=== PATIENT | male | born 1940 | race Caucasian/White ===

== ENCOUNTER 2020-10-20 17:37 | Emergency (ER) | payer MEDICARE, OTHER ==
[~2020-10-20] VITALS: Ht 175.3 cm; Wt 100.0 kg
[2020-10-20 18:09] VITALS: BP 141/64
--- NOTE | 2020-10-20 18:10 | PHYS DOC ---
General Adult EDM: Chief Complaint: CHEST PAIN HPI: HPI: 80-year-old male presents with chest pain. The patient states the pain started about 2 hours ago. It was a central chest pressure that was a 6 out of 10. After arriving in the emergency room, he says it is "pretty well gone". He still has a mild tension in the middle of his back. The patient also felt like he had some bradycardia episodes down into the 40s. He is tracking his heart rate with his apple watch. He denies diaphoresis, shortness of breath, dizziness. Patient was recently diagnosed with paroxysmal atrial fibrillation. He is on diltiazem daily which he takes in the morning. He is taking all his medications as prescribed. 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 Patient denies fever or chills. Review of Systems: Review of Systems: Constitutional: Denies fever or chills Eyes: Denies change in visual acuity HENT: Denies nasal congestion or sore throat Respiratory: Denies cough or shortness of breath Cardiovascular: Chest pain GI: Denies abdominal pain, nausea, vomiting, bloody stools or diarrhea : Denies dysuria Musculoskeletal: Denies back pain or joint pain Integument: Denies rash Neurologic: Denies headache, focal weakness or sensory changes Endocrine: Denies polyuria or polydipsia Lymphatic: Denies swollen glands Psychiatric: Denies depression or anxiety Physical Exam: PE: Constitutional: Well developed, well nourished, no acute distress, non-toxic appearance. [] HENT: Normocephalic, atraumatic, bilateral external ears normal, oropharynx moist, no oral exudates, nose normal. [] Eyes: PERRLA, EOMI, conjunctiva normal, no discharge. [] Neck: Normal range of motion, no tenderness, supple, no stridor. [] Cardiovascular: Heart rate 71, regular rhythm, no murmur [] Lungs & Thorax: Bilateral breath sounds clear to auscultation [] Abdomen: Bowel sounds normal, soft, no tenderness, no masses, no pulsatile masses. [] Skin: Warm, dry, no erythema, no rash. [] Back: No tenderness, no CVA tenderness. [] Extremities: No tenderness, no cyanosis, no clubbing, ROM intact, no edema. [] Neurologic: Alert and oriented X 3, normal motor function, normal sensory function, no focal deficits noted. [] Psychologic: Affect normal, judgement normal, mood normal. [] EKG: EKG: Sinus rhythm, rate 71, normal axis, no ST elevations or depressions, PVC. [] Radiology/Procedures: Radiology/Procedures: [] Heart Score: C/O Chest Pain: Yes HEART Score for Chest Pain: HEART Score for Chest Pain Response (Comments) Value History Slighlty/Non-Suspicious 0 ECG Nonspecific Repolarizatio 1 Age > 65 2 Risk Factors 1 or 2 Risk Factors 1 Troponin < Normal Limit 0 Total 4 Risk Factors: Risk Factors: DM, Current or recent (<one month) smoker, HTN, HLP, family history of CAD, obesity. Risk Scores: Score 0 - 3: 2.5% MACE over next 6 weeks - Discharge Home Score 4 - 6: 20.3% MACE over next 6 weeks - Admit for Clinical Observation Score 7 - 10: 72.7% MACE over next 6 weeks - Early Invasive Strategies Course & Med Decision Making: Course & Med Decision Making Pertinent Labs and Imaging studies reviewed. (See chart for details) The patient's EKG is unremarkable. His labs are unremarkable. His troponin is negative. His chest x-ray is negative for acute findings. The patient's pain is completely gone. Patient has a heart score of 4. He was seen by cardiology within the last 2 months. He has another appointment in less than a month. He would like to go home. I believe this is reasonable. 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 If he has further issues or if his pain returns, he will come back to the emergency room. The patient and his are in agreement. He is stable for discharge at this time [] Dragon Disclaimer: Dragon Disclaimer: This electronic medical record was generated, in whole or in part, using a voice recognition dictation system. Departure Departure: Impression: Primary Impression: Chest pain Qualified Codes: R07.2 - Precordial pain Disposition: HOME / SELF CARE / HOMELESS Condition: STABLE Referrals: ROSA ISELA NAVARRETE MD (PCP) Patient Instructions: Chest Pain (Nonspecific), [id number] FLORY MYERS DO October 20, 2020 18:10
[2020-10-20 18:48] LABS: BASO # 0.1 x10^3/uL (0.0-0.2); BASO % 1 % (0-3); EOS # 0.2 x10^3/uL (0.0-0.7); EOS % 3 % (0-3); HEMATOCRIT 46.1 % (39.0-53.0); LYMPH # 3.1 x10^3/uL (1.0-4.8); LYMPH % 35 % (24-48); MEAN CORPUSCULAR HEMOGLOBIN 33 pg (25-35); MEAN CORPUSCULAR HGB CONC 35 g/dL (31-37); MEAN CORPUSCULAR VOLUME 94 fL (79-100); MONO # 0.9 x10^3/uL (0.0-1.1); MONO % 10 % (0-9); NEUT # 4.7 x10^3uL (1.8-7.7); NEUT % 52 % (31-73); PLATELET COUNT 215 x10^3/uL (140-400); RED BLOOD COUNT 4.89 x10^6/uL (4.30-5.70); RED CELL DISTRIBUTION WIDTH 13.2 % (11.5-14.5)
[2020-10-20 18:52] LABS: CREATININE 1.4 mg/dL (0.7-1.3); GFR 48.6; POTASSIUM 3.8 mmol/L (3.5-5.1)
[2020-10-20 18:56] LABS: ALBUMIN/GLOBULIN RATIO 1.3 (1.0-1.7); TOTAL BILIRUBIN 0.9 mg/dL (0.2-1.0)
--- NOTE | 2020-10-20 19:57 | RAD ---
EXAMINATION: XR CHEST 1V CLINICAL HISTORY: Chest pain EXAM DATE/TIME: 10/20/2020 6:54 PM COMPARISON: 07/20/2006 FINDINGS: Lines, Tubes, and Devices: None. Cardiomediastinal Silhouette: Within normal limits. Lungs and Pleura: Pulmonary hypoexpansion without evidence of focal airspace consolidation or pleural effusion. Mild diffuse reticulonodular opacities, similar to prior study and likely chronic. Bones and Soft Tissues: Degenerative changes of the thoracic spine. IMPRESSION: No evidence of acute cardiopulmonary abnormality or significant interval change. Electronically signed by: Gregorio Smyth DO (10/20/2020 7:55 PM) [facility]
--- NOTE | 2020-10-21 06:56 | EKG ---
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
== END 2020-10-20 20:08 | disposition home or self-care (01) ==
LOC: ER 17:37
DX: R07.89 Other chest pain (principal)
CPT/HCPCS: 36415; 71045; 80053; 84484; 85025; 93005; 99285-25

== ENCOUNTER 2020-10-31 15:36 | Emergency (ER) | payer MEDICARE, OTHER ==
[~2020-10-31] VITALS: Ht 175.3 cm; Wt 87.0 kg
--- NOTE | 2020-10-31 16:15 | PHYS DOC ---
Past History Past Medical History: A-Fib, Diabetes, Heart Disease, Hypertension, Other Additional Past Medical Histor: kidney disease (MECHE WILKS MD) Past Medical History: CAD, Hypertension (SHANNON LANTIGUA MD) Past Surgical History: No Surgical History (MECHE WILKS MD) Alcohol Use: None (MECHE WILKS MD) General Adult EDM: Chief Complaint: Palpitations HPI: HPI: Patient is a 80-year-old male coming in for irregular heartbeat. Was seen here for similar episode about 3 weeks ago. 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 Patient states that his heart rate will drop down to the 40s and then over the course of minute go back up to around 100. States his normal heart rate is around 70-80. Patient is at the time he feels a little bit of chest pressure and lightheadedness. Denies any symptoms now. Denies any cough, shortness of breath, vomiting or diarrhea. Patient has a intentional 20 pound weight loss recently. (MECHE WILKS MD) Review of Systems: Review of Systems: All other systems within normal limits except for as noted in the HPI (MECHE WILKS MD) Allergies: Allergies: Allergies Coded Allergies Type Severity Reaction Last Updated Verified atorvastatin Allergy Unknown 10/31/20 Yes rosuvastatin Allergy Unknown 10/31/20 Yes sulfamethoxazole Allergy Unknown 10/31/20 Yes trimethoprim Allergy Unknown 10/31/20 Yes (MECHE WILKS MD) Physical Exam: PE: Constitutional: Well developed, well nourished, no acute distress, non-toxic appearance. [] HENT: Normocephalic, atraumatic, bilateral external ears normal, nose normal. [] Eyes: PERRLA, conjunctiva normal, no discharge. [] Neck: No rigidity, supple, no stridor. [] Cardiovascular: Regular rate and rhythm, brisk cap refill symmetric radial pulses, no gallops [] Lungs & Thorax: Non labored symmetric respirations, no tachypnea or respiratory distress [] Abdomen: Soft, nondistended. Skin: Warm, dry, no erythema, no rash. [] Back: Unremarkable Extremities: No deformities, range of motion grossly intact, no lower extremity edema [] Neurologic: Alert and oriented X 3, no focal deficits noted. [] Psychologic: Affect normal, judgement normal, mood normal. [] (MECHE WILKS MD) Current Patient Data: Vital Signs: Vital Signs Date Time Temp Pulse Resp B/P (MAP) Pulse Ox O2 Delivery O2 Flow Rate FiO2 10/31/20 15:50 97.3 61 22 149/67 (94) 96 (MECHE WILKS MD) EKG: EKG: Sinus rhythm, heart 50 bpm, normal axis, no ST elevation or depression, no ectopy. [] (MECHE WILKS MD) Radiology/Procedures: Radiology/Procedures: AP portable chest radiograph 10/31/2020 Clinical History: Palpitations. An AP erect portable digital radiograph of the chest was obtained. Comparison study is dated 10/20/2020. The cardiac silhouette is mildly enlarged. The thoracic aorta is mildly tortuous. Elevation of the right hemidiaphragm is again seen. No acute pulmonary infiltrate is noted. No pneumothorax or pleural effusion is seen. The osseous structures are unchanged. Impression: No acute abnormality is seen. [] (MECHE WILKS MD) Radiology/Procedures: [place] [address] IMAGING REPORT Signed PATIENT: ARMAND CLAY ACCOUNT: [id number] : 1940 LOCATION: ER AGE: 80 SEX: M EXAM STATUS: REG ER ORD. PHYSICIAN: MECHE WILKS MD REASON: palpitations PROCEDURE: CHEST AP ONLY AP portable chest radiograph 10/31/2020 Clinical History: Palpitations. An AP erect portable digital radiograph of the chest was obtained. Comparison study is dated 10/20/2020. The cardiac silhouette is mildly enlarged. The thoracic aorta is mildly tortuous. Elevation of the right hemidiaphragm is again seen. No acute pulmonary infiltrate is noted. No pneumothorax or pleural effusion is seen. The osseous structures are unchanged. Impression: No acute abnormality is seen. Electronically signed by: Marcus Lopez MD (10/31/2020 4:28 PM) [id number] DICTATED AND SIGNED BY: MARCUS LOPEZ MD DATE: 10/31/20 1624 CC: MECHE WILKS MD; ROSA ISELA NAVARRETE MD ~MTH0 0 (SHANNON LANTIGUA MD) Heart Score: C/O Chest Pain: Yes HEART Score for Chest Pain: HEART Score for Chest Pain Response (Comments) Value History Moderately Suspicious 1 ECG Normal 0 Age > 65 2 Risk Factors 1 or 2 Risk Factors 1 Total 4 Risk Factors: Risk Factors: DM, Current or recent (<one month) smoker, HTN, HLP, family h istory of CAD, obesity. Risk Scores: Score 0 - 3: 2.5% MACE over next 6 weeks - Discharge Home Score 4 - 6: 20.3% MACE over next 6 weeks - Admit for Clinical Observation Score 7 - 10: 72.7% MACE over next 6 weeks - Early Invasive Strategies (MECHE WILKS MD) HEART Score for Chest Pain: HEART Score for Chest Pain Response (Comments) Value History Slighlty/Non-Suspicious 0 ECG Nonspecific Repolarizatio 1 Age > 65 2 Risk Factors 1 or 2 Risk Factors 1 Troponin < Normal Limit 0 Total 4 Course & Med Decision Making: Course & Med Decision Making Pertinent Labs and Imaging studies reviewed. (See chart for details) Discussed disposition options with patient and . Discussed option of consulting [facility] for his cardiology team. Patient states he plans to see his primary care provider first thing in the morning. Discussed possibility of having a monitor placed. Discussed I would like to repeat 1 more troponin at least 3 hours out from symptom onset to ensure there is no ischemia causing his bradycardia. Discussed return precautions and plan. Patient and agreeable and voiced understanding of the return precautions. [] (MECHE WLIKS MD) Course & Med Decision Making See Dr. Wilks chart for details prior shift change. Pt. without complaints at 1800Hr.s. Patient remains symptom-free. Patient had serial EKGs with no acute interval changes. Patient had 2 - troponins at 0.017. Patient elects to be discharged home with follow-up with cardiology and primary care. Last EKG at 1949 hrs. shows sinus bradycardia rhythm at 50 bpm, some left axis. Some contour changes. But no interval change from prior EKG at 1551 minutes. Impression: 1. History of palpitations 2. Chest discomfort 3. History of coronary artery disease 4. Sinus bradycardia (SHANNON LANTIGUA MD) Dragon Disclaimer: Dragon Disclaimer: This electronic medical record was generated, in whole or in part, using a voice recognition dictation system. (MECHE WILKS MD) Departure Departure: Impression: Primary Impression: Bradycardia Referrals: ROSA ISELA NAVARRETE MD (PCP) MECHE WILKS MD October 31, 2020 16:15 SHANNON LANTIGUA MD October 31, 2020 18:43
--- NOTE | 2020-10-31 16:31 | RAD ---
AP portable chest radiograph 10/31/2020 Clinical History: Palpitations. An AP erect portable digital radiograph of the chest was obtained. Comparison study is dated 10/20/2020. The cardiac silhouette is mildly enlarged. The thoracic aorta is mildly tortuous. Elevation of the ri ght hemidiaphragm is again seen. No acute pulmonary infiltrate is noted. No pneumothorax or pleural e ffusion is seen. The osseous structures are unchanged. Impression: No acute abnormality is seen. Electronically signed by: Marcus Lopez MD (10/31/2020 4:28 PM) [id number]
[2020-10-31 16:49] LABS: BASO # 0.1 x10^3/uL (0.0-0.2); BASO % 1 % (0-3); EOS # 0.3 x10^3/uL (0.0-0.7); EOS % 3 % (0-3); HEMATOCRIT 46.9 % (39.0-53.0); HEMOGLOBIN 16.1 g/dL (13.0-17.5); LYMPH # 2.9 x10^3/uL (1.0-4.8); LYMPH % 29 % (24-48); MEAN CORPUSCULAR HEMOGLOBIN 33 pg (25-35); MEAN CORPUSCULAR HGB CONC 34 g/dL (31-37); MEAN CORPUSCULAR VOLUME 95 fL (79-100); MONO # 0.8 x10^3/uL (0.0-1.1); MONO % 8 % (0-9); NEUT # 5.8 x10^3uL (1.8-7.7); NEUT % 59 % (31-73); PLATELET COUNT 228 x10^3/uL (140-400); RED BLOOD COUNT 4.95 x10^6/uL (4.30-5.70); RED CELL DISTRIBUTION WIDTH 13.3 % (11.5-14.5); WHITE BLOOD COUNT 9.9 x10^3/uL (4.0-11.0)
[2020-10-31 17:01] LABS: CALCIUM 9.9 mg/dL (8.5-10.1); CREATININE 1.2 mg/dL (0.7-1.3); GFR 58.1; POTASSIUM 3.6 mmol/L (3.5-5.1)
[2020-10-31 17:13] LABS: ALBUMIN 3.7 g/dL (3.4-5.0); ALBUMIN/GLOBULIN RATIO 1.1 (1.0-1.7); MAGNESIUM 2.2 mg/dL (1.8-2.4); PHOSPHORUS 3.4 mg/dL (2.6-4.7); TOTAL BILIRUBIN 0.9 mg/dL (0.2-1.0); TOTAL PROTEIN 7.1 g/dL (6.4-8.2)
--- NOTE | 2020-10-31 18:57 | EKG ---
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
[2020-10-31 19:09] LABS: BILIRUBIN,URINE NEG (NEG); CLARITY,URINE CLEAR; COLOR,URINE YELLOW; GLUCOSE,URINE NEG (NEG); NITRITE,URINE NEG (NEG)
[2020-10-31 19:10] LABS: BACTERIA,URINE 0 /HPF (0-FEW); SQUAMOUS EPITHELIAL CELL,UR OCC /LPF; WBC,URINE 0 /HPF (0-4)
[2020-10-31 19:55] VITALS: BP 124/76
--- NOTE | 2020-10-31 21:55 | EKG ---
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
== END 2020-10-31 20:00 | disposition home or self-care (01) ==
LOC: ER 15:36
DX: R00.1 Bradycardia, unspecified (principal); R07.89 Other chest pain; R42 Dizziness and giddiness; I48.91 Unspecified atrial fibrillation; E11.9 Type 2 diabetes mellitus without complications; I11.9 Hypertensive heart disease without heart failure; Z88.1 Allergy status to other antibiotic agents; Z88.2 Allergy status to sulfonamides; Z88.8 Allergy status to other drugs, medicaments and biological substances
CPT/HCPCS: 36415; 71045; 80053; 81001; 83735; 83880; 84100; 84484; 85025; 93005; 99285

== ENCOUNTER 2021-08-02 23:09 | Emergency (ER) | payer MEDICARE, OTHER ==
[~2021-08-02] VITALS: Ht 175.3 cm; Wt 87.0 kg
--- NOTE | 2021-08-02 23:14 | PHYS DOC ---
Past History Past Medical History: CAD, Hypertension Additional Past Medical Histor: kidney disease Past Surgical History: No Surgical History Alcohol Use: None Adult General HPI HPI Patient is an 81-year-old male who presents with a chief complaint of high blood pressure. States that he has had a machine at home for about 5 years and took it earlier and was like 170/100. Denies any headache, changes in vision, slurred speech, confusion, facial droop, numbness/weakness/tingling, trouble s itting, standing or walking. Denies any chest pain, shortness of breath, abdominal pain, nausea, vomiting. States he is making urine and stool normally for him with no blood in either. Denies any dyspnea on exertion, orthopnea, PND or edema. States he is otherwise asymptomatic here in the emergency department. Denies recent illnesses, traumas, travels, known ill contacts. States he is eating and drinking normally for him. Review of Systems Review of Systems Review of systems otherwise unremarkable except noted in HPI Allergies Allergies Allergies Coded Allergies Type Severity Reaction Last Updated Verified atorvastatin Allergy Unknown 10/31/20 Yes rosuvastatin Allergy Unknown 10/31/20 Yes sulfamethoxazole Allergy Unknown 10/31/20 Yes trimethoprim Allergy Unknown 10/31/20 Yes Physical Exam Physical Exam Constitutional: Well developed, well nourished, no acute distress, non-toxic appearance. [] HENT: Normocephalic, atraumatic, bilateral external ears normal, oropharynx moist, no oral exudates, nose normal. [] Eyes: conjunctiva normal, no discharge. [] Neck: Normal range of motion, no tenderness, supple, no stridor. [] Cardiovascular:Heart rate regular rhythm, no murmur [] Lungs & Thorax: Bilateral breath sounds clear to auscultation [] Abdomen: soft, no tenderness, no masses, no pulsatile masses. [] Skin: Warm, dry, no erythema, no rash. [] Back: No tenderness, no CVA tenderness. [] Extremities: No tenderness, no cyanosis, no clubbing, ROM intact, no edema. [] Neurologic: Alert and oriented X 3, normal motor function, normal sensory function, no focal deficits noted. [] Psychologic: Affect normal, judgement normal, mood normal. [] EKG EKG [] Radiology/Procedures Radiology/Procedures [] Heart Score C/O Chest Pain: No Risk Factors: Risk Factors: DM, Current or recent (<one month) smoker, HTN, HLP, family history of CAD, obesity. Risk Scores: Risk Factors: DM, Current or recent (<one month) smoker, HTN, HLP, family history of CAD, obesity. Course & Med Decision Making Course & Med Decision Making Patient is an 81-year-old male who presents with a chief complaint of high blood pressure Vital signs notable for hypertension at 167/92. Physical exam noted above. Patient asymptomatic. EKG with a rate of 85, QRS of 90, QTc of 402, no STEMI. Discussed differential diagnosis with patient and offered a work-up versus foll ow-up in the morning with his primary care physician. States he is feeling well and would prefer just to go to his primary care physician in the morning as he has a walk-in. Advised to take all medications as prescribed. Advised to stay well-hydrated. Discussed diet. Discussed exercise. Advised follow-up first thing with his primary care physician in the morning. Gave strict return precautions to the ED. Patient grateful, verbalized understanding and agreed with plan of discharge. Dragon Disclaimer Dragon Disclaimer This electronic medical record was generated, in whole or in part, using a voice recognition dictation system. Departure Departure: Impression: Primary Impression: Hypertension Disposition: HOME / SELF CARE / HOMELESS Condition: STABLE Referrals: ROSA ISELA NAVARRETE MD (PCP) Patient Instructions: Hypertension Additional Instructions: Thank you for coming into the emergency department tonight and allowing us to take care of you. Please read the attached information carefully to go over things we discussed. Please take all your medications as prescribed. Please be sure to stay well-hydrated and eat 3 nutritious meals a day and take a One-A-Day vitamin. Please follow-up in the morning with your primary care physician as we discussed and go to his walk-in clinic first thing to discuss your ED visit, hypertension, diet and exercise. Please come back to the emergency department immediately with new or concerning symptoms as we discussed. ASCENCION TAN MD Aug 02, 2021 23:14
[2021-08-02 23:16] VITALS: BP 167/92
--- NOTE | 2021-08-03 02:08 | EKG ---
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
== END 2021-08-02 23:48 | disposition home or self-care (01) ==
LOC: ER 23:09
DX: I10 Essential (primary) hypertension (principal); I25.10 Atherosclerotic heart disease of native coronary artery without angina pectoris; Z88.2 Allergy status to sulfonamides; Z88.1 Allergy status to other antibiotic agents; Z88.8 Allergy status to other drugs, medicaments and biological substances
CPT/HCPCS: 93005; 99283